=== PATIENT | male | born 1960 | race African-American/Black ===

== ENCOUNTER 2021-01-06 19:18 | Emergency (ER) | payer MEDICAID ==
[~2021-01-06] VITALS: Ht 180.3 cm; Wt 170.0 kg
[~2021-01-06 19:18] MED LIST: IBUP-2030 MT
[2021-01-06 19:50] VITALS: BP 136/82
== END 2021-01-07 02:23 | disposition home or self-care (01) ==
LOC: ER 19:18
DX: S09.8XXA Other specified injuries of head, initial encounter (principal); R45.1 Restlessness and agitation; B20 Human immunodeficiency virus [HIV] disease; Y08.89XA Assault by other specified means, initial encounter; Y93.9 Activity, unspecified; Y92.9 Unspecified place or not applicable
CPT/HCPCS: 99284